=== PATIENT | female | born 1965 | race Caucasian/White ===

== ENCOUNTER 2017-10-02 10:00 | Emergency (ER) | payer BC ==
[~2017-10-02] VITALS: Ht 170.2 cm; Wt 96.8 kg
[~2017-10-02 10:00] MED LIST: LOVENOX40 MG/0.4 SC; MULTIPLE VITAM1 EAC4 PO; OXYCODONE-APAP1 EACH PO; PREMPRO 0.31 TABLET PO; SYNTHROID175 MCG PO; TYLENOL EXTRA500 MG PO
[2017-10-02 10:47] LABS: HEMATOCRIT 43.9 % (36.0-46.0); HEMOGLOBIN 15.1 G/DL (11.9-15.5); MCHC 34.4 G/DL (30.0-36.0); MCV 87.1 FL (83-99); PLATELET COUNT 233 K/uL (156-360); RBC DIS.WIDTH-CV 11.9 % (11.8-14.6); RBC DIS.WIDTH-SD 38.1 % (39-53); RED BLOOD COUNT 5.04 M/uL (3.80-5.20); WHITE BLOOD COUNT 4.8 K/uL (4.1-10.2)
[2017-10-02] MEDS ORDERED: ASPIR 8181 M1 PO (10:47)
[2017-10-02 11:01] LABS: ALBUMIN 4.3 g/dL (3.2-4.8); CHLORIDE 109 mEq/L (99-109); POTASSIUM 4.7 mEq/L (3.7-5.4); SODIUM 142 mEq/L (136-147)
[2017-10-02 11:03] LABS: GLUCOSE 100 mg/dL (70-99); TOTAL PROTEIN 6.9 g/dL (6.4-8.3)
[2017-10-02 11:05] LABS: TOTAL BILIRUBIN 0.4 mg/dL (0.0-1.0)
[2017-10-02 11:07] LABS: ALKALINE PHOSPHATASE 78 IU/L (3-129); CREATININE 0.9 mg/dL (0.6-1.3); D-DIMER ELISA < 150.00 ng/mLDDU (<230); GFR ESTIMATE (CALCULATED) > 59 mL/min/
[2017-10-02 11:08] LABS: UREA NITROGEN (BUN) 16 mg/dL (9-23)
[2017-10-02 11:09] LABS: AST (GOT) 24 IU/L (2-34)
[2017-10-02 11:10] LABS: ALT (GPT) 24 IU/L (3-49)
[2017-10-02 11:36] LABS: TROP-I INTERPRETATION NEGATIVE; TROPONIN-I < 0.01 ng/mL (0.0-0.30)
[2017-10-02 11:40] LABS: LIPASE 16 U/L (1.0-51.0)
[2017-10-02 12:16] LABS: APPEARANCE CLEAR ((CLEAR)); BILIRUBIN NEGATIVE; BLOOD NEGATIVE; COLOR STRAW ((YELLOW)); GLUCOSE (STRIP) NEGATIVE; KETONES NEGATIVE; LEUKOCYTES NEGATIVE; NITRITE NEGATIVE; PROTEIN (STRIP) NEGATIVE; SPECIFIC GRAVITY 1.005 (1.000-1.030); UCUL ADDED? NO; UROBILINOGEN 0.2 MG/DL (0.2-1.0)
[2017-10-02] MEDS ORDERED: ULTRAM50 MG PO (12:37)
[2017-10-02] MEDS ORDERED: ZOFRAN4 MG PO (12:37)
[2017-10-02 12:48] VITALS: BP 149/90
== END 2017-10-02 12:56 | disposition home or self-care (01) ==
LOC: EME 10:00
PROVIDERS: Emergency Medicine
DX: K80.20 Calculus of gallbladder without cholecystitis without obstruction (principal); Z85.850 Personal history of malignant neoplasm of thyroid
CPT/HCPCS: 76705; 80053; 81003; 83690; 84484; 84702; 85027; 85379; 93005; 99281; 99285; J7030

== ENCOUNTER 2017-11-04 07:41 | Day surgery (SDC) | payer BC ==
[~2017-11-04] VITALS: Ht 170.2 cm; Wt 93.4 kg
[~2017-11-04 07:41] MED LIST changes: +ASPIR 8181 M1 PO; +PREMARIN0.3 MG PO; +ULTRAM50 MG PO; +ZOFRAN4 MG PO
[2017-11-04 08:28] VITALS: BP 141/91
[2017-11-04] MEDS ORDERED: NORCO 5/3251 TABLET PO (10:10)
[2017-11-04 11:36] VITALS: BP 144/74
[2017-11-04 12:33] VITALS: BP 139/67
[2017-11-04 13:30] VITALS: BP 133/63
[2017-11-04 16:39] VITALS: BP 120/70
== END 2017-11-04 13:55 | disposition home or self-care (01) ==
LOC: SDC 07:41
DX: K80.10 Calculus of gallbladder with chronic cholecystitis without obstruction (principal); Z85.850 Personal history of malignant neoplasm of thyroid; E66.9 Obesity, unspecified; Z68.32 Body mass index [BMI] 32.0-32.9, adult
CPT/HCPCS: 74300; 88304; C1769; J1100; J1170; J1885; J2250; J2405; J2710; J2765; J3010; J7120; J7643; S0020; S0074